=== PATIENT | male | born 1940 | race Caucasian/White ===

== ENCOUNTER 2018-02-14 15:52 | Inpatient (IN) | payer MEDICARE, OTHER ==
[~2018-02-14] VITALS: Ht 180.3 cm; Wt 96.2 kg
[~2018-02-14 15:52] MED LIST: ALLOPURINOL300 MG PO; ATORVASTATIN CA20 MG PO; CLONIDINE HCL0.1 MG; DILTIAZEM 24HR360 MG; LOSARTAN POTAS100 MG; METOPROLOL TART25 MG PO; NORVASC5 MG PO; OMEPRAZOLE20 MG; PANTOPRAZOLE SO40 MG PO; ULTRAM50 MG
--- NOTE | 2018-02-14 16:47 | Diagnostic Imaging Report ---
Exam: Head CT without contrast History: Weakness, dizziness Comparison studies: Head CT 02/07/2018 Technique: Axial images were obtained from the skull base to the vertex. Coronal and sagittal images reconstructed from the axial data. Dose modulation, iterative reconstruction, and/or weight based adjustment of the mA/kV was utilized to reduce the radiation dose to as low as reasonably achievable. Radiation dose: Total DLP: 921 mGy*cm. Estimated effective dose: DLP x 0.015 Intravenous contrast: None Findings: Scalp: No abnormalities. Bones: No fractures, blastic or lytic lesions. Brain sulci: Mildly prominent. Ventricles: Very mild compensatory. No hydrocephalus. Extra-axial spaces: No masses, no fluid collection. Parenchyma: No mass, acute hemorrhage or acute or chronic cortical vascular insults. Unchanged chronic lacunar infarct in the right medial thalamus. Unchanged chronic lacunar infarct centered in the anteroinferior head of the right caudate nucleus. A Few scattered ill-defined hypodensities in the supratentorial white matter are nonspecific most compatible with chronic microvascular ischemic changes.. Sellar/suprasellar region: No abnormalities. Craniocervical junction: Patent foramen magnum. No Chiari one malformation. Incidental findings: Bilateral intraocular lens replacements. Atherosclerotic calcifications in the carotid siphons and left intradural vertebral artery. IMPRESSION: 1. No acute intracranial abnormalities. 2. No changes from the previous head CT of 02/07/2018. 3. Mild chronic microvascular ischemic changes with chronic lacunar infarcts in the right caudate nucleus and right thalamus. Signed by: Dr. Sharath Fontenot M.D. on 02/14/2018 4:43 PM
[2018-02-14] MEDS ORDERED: PLAVIX75 MG PO (17:05)
[2018-02-14] MEDS ORDERED: ASPIRIN81 MG PO (17:05)
[2018-02-14] MEDS ORDERED: ESIDRIX25 MG PO (18:12)
[2018-02-14] MEDS ORDERED: HYDRALAZINE HCL 20 MG/ML VIAL IV PRN (18:15)
[2018-02-14 18:21] VITALS: BP 183/91
[2018-02-14] MEDS ORDERED: METOPROLOL TARTRATE 25 MG TAB PO SCH (18:30)
[2018-02-14] MEDS: THIAMINE HCL 100 MG TAB PO SCH (18:40)
[2018-02-14] MEDS: FOLIC ACID 1 MG TAB PO SCH (18:40)
[2018-02-14] MEDS ORDERED: CLONIDINE HCL 0.1 MG TAB PO PRN (18:45)
--- NOTE | 2018-02-14 19:16 | Consultation ---
DATE OF CONSULTATION: February 14, 2018 CARDIAC CONSULTATION REASON FOR CONSULTATION: Possible TIA, CVA. HISTORY: This is a 77-year-old gentleman who is very well known to me. He does have history of hypertension and presumed S.V.T. in the past. He had few episodes of presumed near cardiac syncope in the past latest 2016. His cardiac workup was negative. He was at this institution on February 07, 2018 when he was admitted with chest pain, elevated cardiac enzymes with vmc-EC-lbytqdegf myocardial infarction. He had a cardiac catheterization which showed the presence of LAD disease. This was treated successfully with PCI and stenting of the left anterior descending coronary artery. This was done successfully the same night. Patient dismissed home and the next day in the morning. His medication was adjusted. So, his Cardizem 360 mg was stopped and changed to metoprolol 25 mg twice a day because of relative bradycardia. The patient was doing extremely well, very active, very happy with no chest pain, no shortness of breath. Today, he was in his car and suddenly he felt funny, dizzy. He tried to get out of the car. He does have weakness of his left lower extremity and he was having severe dizzy spells. He was very unsteady and slurred speech. He called his and they came to the emergency room. Patient seen and evaluated in the emergency room. I had a call from the ER physician and patient is there with chest pain. His cardiac enzymes came back negative. I said he can come to see me in my office. Patient came to my office and definitely the patient's his symptoms are not chest pain. It seems to be of weakness of the left body side, very unsteady gait and more pronounced weakness of the left lower extremity and slurred speech. His blood pressure was 170/80. I immediately asked him to go back to the emergency room to have further workup and I called the emergency room. He had CT scan which showed no acute changes. Patient does have prior CVA as per CT report and they cannot find any new abnormalities. His blood pressure was elevated at 170/90. His heart rate was in the 50s. He was very anxious. I revisited with the patient in the emergency room and patient admitted to the floor and his family with him. He does not have any chest pain whatsoever. His symptoms are dizziness, unbalanced gait, weakness of the left body side. It started this morning. REVIEW OF SYSTEMS: extensive to all systems. CARDIAC: No chest pain. No shortness of breath. No syncope or presyncope. GENERAL: No fever. No chills. PULMONARY: No cough. No hemoptysis. GI: No hematemesis. No melena. : No hematuria. No dysuria. HEMATOLOGICAL: Easy bruising but no bleeding. MUSCULOSKELETAL: Bilateral knee pain and back pain. History of herniated disk. NEUROLOGICAL: As per acute illness. SOCIAL HISTORY: He is . He is a nonsmoker. He is a social alcohol drinker. He is a retired longshoreman. He works in [employer] in [employer] [facility] and [place]. HOME MEDICATIONS: Losartan hydrochlorothiazide 100/25 one tablet a day. Plavix 75 mg a day. Aspirin 81 mg a day. Metoprolol 25 mg twice a day. Prilosec, vitamins, folic acid. Lipitor 20 mg daily, Glucosamine. ALLERGIES: CELEBREX, CLONIDINE AND AMLODIPINE. PAST MEDICAL HISTORY: 1. Coronary artery disease, status post bdh-NW-qipcnzlvv myocardial infarction and PCI using 3.5 mm x 22 Peak stent on February 07, 2018. 2. History of arrhythmias and presumed not documented S.V.T. 3. Hypertension. 4. Mild chronic renal insufficiency. 5. Decreased hearing. 6. Allergies and hayfever. 7. GERD. 8. Status post lumbar laminectomy. 9. Degenerative joint disease. 10. Right knee surgery twice. 11. Right elbow surgery. 12. Gastrectomy for ulcer at age 29. 13. Ventral hernia surgery. 14. Left knee replacement in 2013. FAMILY HISTORY: Mother at age 88. She had pacemaker. She was hypertensive peripheral arterial vascular disease and heart disease. Father at age 59 with myocardial infarction. Four siblings, one of them of myocardial infarction at age 60. Two healthy children, 1 son and 1 daughter. PHYSICAL EXAMINATION VITALS: Height of 5 feet, 11 inches, weight of 186 pounds. Blood pressure 170/90. Heart rate of 50. Respiratory rate of 18. HEENT: Pupils are reactive. NECK: No elevation of jugular venous pulsation. No bruit. CHEST: Clear to auscultation and percussion. HEART: PMI at the 5th left intercostal space. Normal 1st and 2nd heart sounds. ABDOMEN: Soft with good bowel sounds. No organomegaly. EXTREMITIES: No cyanosis. No clubbing. No edema. NEUROLOGIC: Very abnormal gait, unsteady, weakness of the left body side, more pronounced on the left lower extremity. Speech seems to be almost back to normal. LABORATORY DATA: White blood cell count of 6.4. Hemoglobin 12.6. Hematocrit 37%. Platelet count of 217. BUN 30. Creatinine 1.43, triglycerides of 197, cholesterol 174. HDL of 39. LD of 116. CT head as per report showing no acute changes, evidence of prior CVA and chronic vascular ischemic changes. IMPRESSION AND PLAN: 1. Cerebrovascular accident, possible transient ischemic attack effecting the left body side. 2. Coronary artery disease. 3. Hypertensive heart disease. 4. Chronic renal insufficiency. 5. Decreased hearing. 6. Uncontrolled hypertension. RECOMMENDATIONS: Etiology for his CVA is multifactorial. This could be just simply hypertensive CVA or maybe embolic. Because of recent intervention and given anticoagulation fear of bleed. This was ruled out by the current CT scan. Differential diagnosis, in fact, discussed with the patient, his son and his when they were in my office. I followed him to the hospital and orders were discussed with the nursing staff since the patient is not in the computer yet. I will take also the liberty to give thiamine 100 mg a day as well as folic acid since the patient had prior GI surgery, and he drinks alcohol at times for nutritional supplements. Consultation with Dr. Purdy is requested. Adjustment of medication with liberalizing the blood pressure around 150-160, keeping the patient on telemetry. The plan was discussed with the nursing staff, discussed with the patient and his family. Will follow this patient's progression with you. I would like to thank you for your kind referral. Job#: [id number] JULI[facility]
[2018-02-14 20:00] VITALS: BP 159/74
[2018-02-14] MEDS ORDERED: SODIUM CHLORIDE 0.9% 1000ML 1,000 ML ONE (20:25)
[2018-02-14] MEDS ORDERED: SODIUM CHLORIDE 0.9% 1000ML 1,000 ML IV ONE (20:30)
[2018-02-14] MEDS: ATORVASTATIN 20 MG TAB PO SCH (20:34)
[2018-02-14 21:00] LABS: CHOL/HDL RATIO 3.8 (3.9-4.7)
[2018-02-15] VITALS (7 sets, daily range): BP systolic 150–185; BP diastolic 67–95
[2018-02-15] MEDS: PANTOPRAZOLE SOD 40 MG TABEC PO SCH (07:30)
[2018-02-15] MEDS: CLOPIDOGREL BISULFATE 75 MG TAB PO SCH (09:00)
[2018-02-15] MEDS ORDERED: HYDROCHLOROTHIAZIDE 25 MG TAB PO SCH (09:00)
[2018-02-15] MEDS: THIAMINE HCL 100 MG TAB PO SCH (09:00)
[2018-02-15] MEDS ORDERED: LOSARTAN POTASSIUM 100 MG TAB PO SCH (09:00)
[2018-02-15] MEDS: ASPIRIN 81 MG CHEW TAB PO SCH (09:00)
[2018-02-15] MEDS: FOLIC ACID 1 MG TAB PO SCH (09:00)
[2018-02-15] MEDS: HYDROCHLOROTHIAZIDE 25 MG TAB PO SCH (11:00)
[2018-02-15] MEDS: LOSARTAN POTASSIUM 100 MG TAB PO SCH ×2 (11:00→21:00)
--- NOTE | 2018-02-15 12:15 | Diagnostic Imaging Report ---
History: CT head 02/14/2018 and 02/07/2018 Comparison studies: None Technique: Sagittal T2; axial DWI, FLAIR, MPGR, T1, Coronal FLAIR. Intravenous contrast: None Findings: Scalp: Normal in signal . No masses . Bone marrow: Normal in signal intensity. Extra-axial: No masses, no fluid collections. Brain sulci: Appropriate for age. Ventricles: Normal in size . No hydrocephalus . Parenchyma: Focus of restricted diffusion with associated T2 signal intensity changes at the right superior naren No masses or hemorrhage. Suprasellar region: No abnormalities. Craniocervical junction: No abnormalities. Patent foramen magnum. No Chiari one malformation. Vessels: Normal flow-voids in the arteries and sinuses. IMPRESSION: 1. Acute infarct at the right superior naren. No intracranial hemorrhage. 2. Mild chronic microvascular ischemic changes of the white matter The above finding was reported and acknowledged by SHABNAM Najera at 12:00 PM 02/15/2018. Signed by: DR Efren Boswell M.D. on 02/15/2018 12:12 PM
--- NOTE | 2018-02-15 12:26 | Diagnostic Imaging Report ---
History: Left-sided weakness Comparison studies: None Technique: 2-D ahop-hz-hsmoat cervical. 3-D vnmf-sy-yjdinz intracranial. Contrast: None Findings: Percentage of stenosis will be based on the NASCET criteria. Aortic arch: Obscured by artifacts. Common carotid arteries: Origins obscured by artifacts. Otherwise, no flow abnormalities. Right carotid bulb: No flow abnormalities. Left carotid bulb: No flow abnormalities. Internal carotid arteries: No flow abnormalities. Vertebral arteries: Origins obscured by artifacts. Otherwise, no flow abnormalities. Basilar artery: No flow abnormalities. Posterior cerebral arteries: No flow abnormalities. Anatomical variants: Acom: Visualized. Pcom: Not visualized. Vertebral arteries: Co-dominant. IMPRESSION: Cervical MRA: No hemodynamically significant stenosis. Intracranial MRA: No hemodynamically significant stenosis. Signed by: DR Efren Boswell M.D. on 02/15/2018 12:22 PM
--- NOTE | 2018-02-15 12:26 | Diagnostic Imaging Report ---
History: Left-sided weakness Comparison studies: None Technique: 2-D upeo-uv-ipsiqw cervical. 3-D buqi-qi-klsmyc intracranial. Contrast: None Findings: Percentage of stenosis will be based on the NASCET criteria. Aortic arch: Obscured by artifacts. Common carotid arteries: Origins obscured by artifacts. Otherwise, no flow abnormalities. Right carotid bulb: No flow abnormalities. Left carotid bulb: No flow abnormalities. Internal carotid arteries: No flow abnormalities. Vertebral arteries: Origins obscured by artifacts. Otherwise, no flow abnormalities. Basilar artery: No flow abnormalities. Posterior cerebral arteries: No flow abnormalities. Anatomical variants: Acom: Visualized. Pcom: Not visualized. Vertebral arteries: Co-dominant. IMPRESSION: Cervical MRA: No hemodynamically significant stenosis. Intracranial MRA: No hemodynamically significant stenosis. Signed by: DR Efren Boswell M.D. on 02/15/2018 12:22 PM
--- NOTE | 2018-02-15 21:13 | Consultation ---
DATE OF CONSULTATION: NEUROLOGY CONSULTATION HISTORY OF PRESENT ILLNESS: Mr. Arce is a 77-year-old right hand dominant man with past medical history significant for hypertension, hyperlipidemia, diabetes mellitus type 2, and a recent wib-SS-eawjwybkz myocardial infarction with cardiac stent placement, admitted to [facility] on February 14, 2018, with symptoms concerning for stroke. At approximately 10:00 on February 14, 2018, the patient experienced the sudden onset of left hemiparesis, leg greater than arm, left hemihypesthesia, and gait impairment. Mr. Arce was brought to the Emergency Center at [facility] via private vehicle by his for further evaluation. The patient arrived in the Emergency Center at approximately 11:00. Per the patient and his , blood work was performed as well as a CT of the brain without contrast. All studies were reportedly normal. Mr. Arce remained in the Emergency Center for approximately 2 hours. His chief of surgery, Dr. Bales, was notified of the patient presence in the emergency room. Dr. Bales advised the patient to leave the Emergency Center and come to his office for evaluation of what was thought to be chest pain. However, upon quick examination of the patient in his office, Dr. Bales informed the patient he was probably having a stroke and advised him to return to the Emergency Center at [facility] for further evaluation and treatment. On the advice of Dr. Balse, the patient returned to the Emergency Center at [facility]. Unfortunately, treatment with tissue plasminogen activator (t-PA) was not offered, presumably because the patient was outside the 4-1/2-hour time window for intravenous thrombolytics. Mr. Arce has not experienced similar symptoms previously. He does not report a visual field cut or other disturbance, dysarthria, aphasia, dizziness, or confusion. The patient does report a mild left facial droop. As alluded to above, Mr. Arce was hospitalized approximately 1 week ago with a llb-GQ-zsqpnezrr myocardial infarction. During this hospitalization, he underwent cardiac stent placement. During this hospitalization, multiple adjustments/additions were made to the patient's home medication regimen. REVIEW OF SYSTEMS: Double vision, dysarthria, left facial weakness, left hemiparesis, left hemihypesthesia, impairment of balance and gait. Otherwise, the 12-point review of systems is negative. PAST MEDICAL HISTORY: Hypertension, hyperlipidemia, diabetes mellitus type 2, coronary artery disease with recent esm-IG-lnorpymxq myocardial infarction, peptic ulcer disease, gastroesophageal reflux disease. PAST SURGICAL HISTORY: Cardiac stent placement times 1, stomach surgery for peptic ulcer disease, hiatal hernia repair, lumbar spine fusion, orthopedic surgery of the right ankle/foreleg, left knee replacement, appendectomy, bilateral cataract removal, left elbow surgery, repair of tendon in the right hand. PAST HOSPITALIZATIONS: Surgeries/procedures as listed, myocardial infarction. FAMILY MEDICAL HISTORY: The patient's paternal a maternal grandparents are . Their medical histories are unknown. The patient's father is from coronary artery disease with myocardial infarction. The patient's mother is from pneumonia. Mr. Arce had 4 siblings, 3 brothers and 1 sister. One brother is from coronary artery disease with a prior myocardial infarction. One brother is alive and healthy. The 3rd brother is alive, but has a history of substance abuse. The patient's sister is alive. She has hypertension and peptic ulcer disease. The patient has 2 children, a daughter and a son, both of whom are alive. The patient's daughter has trisomy 21. The patient's son was recently treated for cancer. SOCIAL HISTORY: Mr. Arce is . He is retired. There is no reported current or prior tobacco or recreational drug use. The patient does report occasional alcohol use. HOME MEDICATIONS: Please see the list available in the electronic medical records. ALLERGIES: NO KNOWN DRUG ALLERGIES. NO KNOWN FOOD ALLERGIES. NO KNOWN ALLERGIES TO LATEX. NO KNOWN ALLERGIES TO IODINE OR OTHER CONTRAST MATERIALS. PHYSICAL EXAMINATION VITAL SIGNS: Height 71 inches, weight 185 pounds, BMI 25.8 kg per meter squared. Blood pressure 155/67 mmHg, pulse 60 beats per minute, respiratory rate 20 breaths per minute, oxygen saturation 96% on room air. GENERAL: The patient is awake and alert, appears distressed secondary to left hemiparesis. HEENT: Normocephalic, atraumatic. Pupils are surgical. Moist mucous membranes. NECK: Supple. No appreciable thyromegaly. No appreciable carotid bruits. CARDIOVASCULAR: S1, S2, regular rate and rhythm. No murmurs, rubs, or gallops. RESPIRATORY: Clear to auscultation bilaterally. No wheezes, rhonchi, or rales. EXTREMITIES: The skin is warm and dry. No clubbing, cyanosis, or edema. The posterior tibial and dorsalis pedis pulses are 1+ and symmetric. SKIN: No rashes or lesions. NEUROLOGIC Memory/Attention: The patient is awake and alert, oriented to person, place, time, and situation. Cranial Nerves: Cranial nerve I--not tested. Cranial nerve II, III, IV, and --pupils are surgical. Extraocular movements intact. No nystagmus. Cranial nerve V--sensation to light touch and pinprick is intact in the bilateral V1 through V3 distributions. Strength of the temporalis and masseter muscles is within normal limits. Cranial nerve VII--left facial asymmetry with mild central left facial weakness. Cranial nerve VIII--hearing is diminished to finger rub bilaterally. Cranial nerve IX, X--the soft palate elevates equally and symmetrically. Cranial nerve XI--normal strength of the bilateral sternocleidomastoid and trapezius muscles. Cranial nerve XII--the tongue protrudes in midline and moves symmetrically from side to side. Strength: Bulk is normal. Strength is 5/5 in the right deltoids, biceps, triceps, wrist flexors and extensors, finger flexors and extensors, intrinsic hand muscles, hip flexors, knee flexors and extensors, ankle dorsiflexion and plantar flexion, and intrinsic foot muscles. Strength is grossly 2/5 in the left arm with decreased tone. Strength is grossly 3/5 in the left leg. DTRs: Deep tendon reflexes are 2+ and symmetric at the triceps, biceps, brachioradialis, and patellas. Deep tendon reflexes are absent and symmetric at the Achilles. Plantar responses are flexor on the right, extensor on the left. Sensation: Sensation is diminished to light touch and pinprick over the left hemibody. Cerebellar: Iacitc-kkay-orxgkg and heel-bradford movements are impaired on the left, but within the bounds of paresis. Cuirwp-bhlt-zzrxuz and heel-bradford movements are intact on the right without dysmetria or other impairment. Gait: Deferred. Speech: Spontaneous speech is mildly dysarthric without aphasia. Repetition is intact. Involuntary Movements: None. Pronator Drift: As per motor exam. LABORATORY DATA: The hemoglobin A1c is 5.4. Total cholesterol 175, triglycerides 206, LDL cholesterol 88, HDL cholesterol 46. DIAGNOSTIC STUDIES: CT of the brain without contrast, February 14, 2018: 1. No acute intracranial abnormalities. 2. No changes from the previous head CT of February 07, 2018. 3. Mild chronic microvascular ischemic changes with chronic lacunar infarcts in the right caudate nucleus and right thalamus. MRI of the brain without contrast February 15, 2018: On my review, there is an acute ischemic, infarct at the right superior naren. There is no evidence of large territorial hemorrhage, mass, or mass effect. Remote lacunar infarcts are once again seen in the right caudate nucleus and right thalamus. There are scattered, nonspecific T2/flair hyperintense foci in the deep white matter compatible with mild to moderate chronic small vessel ischemic disease. MRA of the brain and neck without contrast February 15, 2018: There is no evidence of hemodynamically significant stenosis of either the intra- or extracranial vessels. ASSESSMENT AND PLAN: Mr. Arce is a 77-year-old right hand dominant man with multiple vascular risk factors, admitted with a right superior pontine stroke. His neurological examination is significant for dysarthria and left hemiparesis with the arm being most affected. The patient's laboratory data and other diagnostic studies have been reviewed and are documented above. RECOMMENDATIONS 1. Follow up the results of the echocardiogram. 2. Continue treatment with aspirin and Plavix as recently prescribed secondary to cardiac stent placement. 3. Continue to allow permissive hypertension. The patient's blood pressure should not be treated unless it rises to a systolic of above 200 mmHg. If Mr. Arce' neurological examination is stable on February 16, 2018, his blood pressure may be gently normalized. 4. Continue treatment with the patient's current statin medication. This medicine was prescribed only 1 week ago and has not had time to take full effect. 5. Mr. Arce' hemoglobin A1c is 5.4 which is below the recommended goal of 7.0. No further treatment is necessary. 6. Speech and physical therapy consultations have been ordered and are pending. 7. GI prophylaxis with pantoprazole. DVT prophylaxis with heparin. 8. Defer treatment of the remaining medical comorbidities to the primary and other services following the patient. Thank you for this consultation. I will continue to follow this patient while he remains in the hospital. TIME SPENT: 70 minutes. Job#: [id number] [facility]
[2018-02-15] MEDS: HEPARIN SOD (PORCINE) 5,000 UNIT/ML VIAL SC SCH (21:15)
[2018-02-15] MEDS: ATORVASTATIN 20 MG TAB PO SCH (21:15)
[2018-02-16] VITALS (7 sets, daily range): BP systolic 155–178; BP diastolic 77–88
[2018-02-16 06:01] LABS: BASOPHILS % 0.7 % (0.0-1.0); EOSINOPHILS # (AUTO) 0.2 (0.0-0.4); EOSINOPHILS % 3.2 % (0.0-6.0); HEMATOCRIT 34.2 % (38.2-49.6); HEMOGLOBIN 11.7 g/dL (14.0-18.0); LYMPHOCYTES # (AUTO) 0.7 (1.0-3.2); LYMPHOCYTES % 10.9 % (18.0-39.1); MEAN CORPUSCULAR HEMOGLOBIN 32.6 pg (28-32); MEAN CORPUSCULAR HGB CONC 34.2 g/dL (31-35); MEAN CORPUSCULAR VOLUME 95.3 fL (81-99); MONOCYTES # (AUTO) 0.5 (0.2-0.8); NEUTROPHILS # (AUTO) 4.6 (2.1-6.9); NEUTROPHILS % 76.4 % (38.7-80.0); PLATELET COUNT 185 x10e3/uL (140-360); RED BLOOD COUNT 3.59 x10e6/uL (4.3-5.7); RED CELL DISTRIBUTION WIDTH 12.9 % (11.7-14.4)
[2018-02-16 06:21] LABS: ALBUMIN 3.3 g/dL (3.5-5.0); ALBUMIN/GLOBULIN RATIO 1.3 (0.8-2.0); ANION GAP 13.7 mmol/L (8-16); CALCIUM 8.6 mg/dL (8.4-10.2); CREATININE, SERUM 1.29 mg/dL (0.72-1.25); POTASSIUM 3.7 mmol/L (3.5-5.1)
[2018-02-16] MEDS: PANTOPRAZOLE SOD 40 MG TABEC PO SCH (09:30)
[2018-02-16] MEDS: LOSARTAN POTASSIUM 100 MG TAB PO SCH ×2 (10:00→21:38)
[2018-02-16] MEDS: HEPARIN SOD (PORCINE) 5,000 UNIT/ML VIAL SC SCH ×2 (10:00→21:39)
[2018-02-16] MEDS: THIAMINE HCL 100 MG TAB PO SCH (10:00)
[2018-02-16] MEDS: FOLIC ACID 1 MG TAB PO SCH (10:00)
[2018-02-16] MEDS: ASPIRIN 81 MG CHEW TAB PO SCH (10:00)
[2018-02-16] MEDS: HYDROCHLOROTHIAZIDE 25 MG TAB PO SCH (10:00)
[2018-02-16] MEDS: CLOPIDOGREL BISULFATE 75 MG TAB PO SCH (10:00)
[2018-02-16] MEDS ORDERED: METOPROLOL TARTRATE 25 MG TAB PO SCH ×2 (10:45→21:00)
[2018-02-16] MEDS ORDERED: TRAZODONE HCL 50 MG TAB PO PRN (10:45)
--- NOTE | 2018-02-16 12:30 | Diagnostic Imaging Report ---
Examination: Single AP view of the chest. COMPARISON: AP chest 02/14/2018 INDICATION: CHF IMPRESSION: 1. Lines and Tubes: None 2. Hypoinflated lungs. Unchanged elevation of the right hemidiaphragm. No consolidation or effusion. 3. Prominent cardiac silhouette, which is partly due to portable AP projection and low lung volumes. Pulmonary vasculature is normal. 4. No acute bony abnormalities. Signed by: Dr. Girish Mckinney M.D. on 02/16/2018 12:26 PM
[2018-02-16] MEDS: ATORVASTATIN 20 MG TAB PO SCH (21:38)
[2018-02-17] VITALS (7 sets, daily range): BP systolic 130–171; BP diastolic 70–85
[2018-02-17 06:23] LABS: BASOPHILS # (AUTO) 0.1 (0.0-0.1); BASOPHILS % 0.6 % (0.0-1.0); EOSINOPHILS # (AUTO) 0.2 (0.0-0.4); EOSINOPHILS % 2.4 % (0.0-6.0); HEMATOCRIT 36.7 % (38.2-49.6); HEMOGLOBIN 12.6 g/dL (14.0-18.0); LYMPHOCYTES # (AUTO) 0.6 (1.0-3.2); LYMPHOCYTES % 7.8 % (18.0-39.1); MEAN CORPUSCULAR HEMOGLOBIN 32.6 pg (28-32); MEAN CORPUSCULAR HGB CONC 34.3 g/dL (31-35); MEAN CORPUSCULAR VOLUME 94.8 fL (81-99); MONOCYTES # (AUTO) 0.6 (0.2-0.8); MONOCYTES % 7.6 % (4.4-11.3); NEUTROPHILS # (AUTO) 6.3 (2.1-6.9); NEUTROPHILS % 80.7 % (38.7-80.0); PLATELET COUNT 197 x10e3/uL (140-360); RED BLOOD COUNT 3.87 x10e6/uL (4.3-5.7); RED CELL DISTRIBUTION WIDTH 13.1 % (11.7-14.4)
[2018-02-17 06:45] LABS: ALBUMIN 3.7 g/dL (3.5-5.0); ALBUMIN/GLOBULIN RATIO 1.3 (0.8-2.0); ANION GAP 15.7 mmol/L (8-16); CALCIUM 9.2 mg/dL (8.4-10.2); CREATININE, SERUM 1.42 mg/dL (0.72-1.25); POTASSIUM 3.7 mmol/L (3.5-5.1)
[2018-02-17] MEDS: CLOPIDOGREL BISULFATE 75 MG TAB PO SCH (08:46)
[2018-02-17] MEDS: HEPARIN SOD (PORCINE) 5,000 UNIT/ML VIAL SC SCH (08:46)
[2018-02-17] MEDS: ASPIRIN 81 MG CHEW TAB PO SCH (08:46)
[2018-02-17] MEDS: THIAMINE HCL 100 MG TAB PO SCH (08:46)
[2018-02-17] MEDS: FOLIC ACID 1 MG TAB PO SCH (08:46)
[2018-02-17] MEDS: HYDROCHLOROTHIAZIDE 25 MG TAB PO SCH (08:46)
[2018-02-17] MEDS: LOSARTAN POTASSIUM 100 MG TAB PO SCH (08:46)
[2018-02-17] MEDS: PANTOPRAZOLE SOD 40 MG TABEC PO SCH (08:46)
[2018-02-17] MEDS ORDERED: METOPROLOL TARTRATE 25 MG TAB PO ONE (10:30)
[2018-02-17] MEDS ORDERED: METOPROLOL TARTRATE 50 MG TAB PO SCH (17:00)
== END 2018-02-17 21:05 | DRG 65 ==
LOC: ER 15:52 → MED/SURG 17:57
DX: I63.59 Cerebral infarction due to unspecified occlusion or stenosis of other cerebral artery (principal); G81.94 Hemiplegia, unspecified affecting left nondominant side; R47.1 Dysarthria and anarthria; R07.89 Other chest pain; E78.5 Hyperlipidemia, unspecified; I25.10 Atherosclerotic heart disease of native coronary artery without angina pectoris; Z95.5 Presence of coronary angioplasty implant and graft; I13.10 Hypertensive heart and chronic kidney disease without heart failure, with stage 1 through stage 4 chronic kidney disease, or unspecified chronic kidney disease; N18.3 Chronic kidney disease, stage 3 (moderate)
CPT/HCPCS: 36415; 70450; 70544; 70547; 70551; 71045; 80053; 80061; 83036; 83880; 85025; 92523; 93005; 93306; 96372; 97139; 99284; J1644; J3411; J7030